=== PATIENT | male | born 1975 | race Caucasian/White ===

== ENCOUNTER 2018-06-09 12:59 | Emergency (ER) | payer OTHER ==
[~2018-06-09] VITALS: Ht 182.9 cm; Wt 70.3 kg
[2018-06-09] MEDS ORDERED: HUMALOG100 UNIT/1 SUBQ (13:19)
[2018-06-09] MEDS ORDERED: VITAMIN D3400 UNIT PO (13:19)
[2018-06-09] MEDS ORDERED: PRAVACHOL20 MG PO (13:19)
[2018-06-09 14:17] LABS: HEMATOCRIT 43.7 % (42.0-52.0); HEMOGLOBIN 14.8 gm/dL (14.0-18.0); MCH 30.6 pg (26.0-34.0); MCHC 33.8 g/dL (28.0-37.0); MCV 90.6 fL (80.0-100.0); MPV 8.8 fl. (7.2-11.1); RBC 4.82 mil/uL (4.50-6.00); RDW-CV 12.6 % (10.5-14.5); WBC 6.8 thou/uL (4.0-11.0)
[2018-06-09 14:25] LABS: INR 1.1; PROTIME 10.4 Seconds (9.20-11.50)
[2018-06-09 14:32] LABS: URINE BILIRUBIN NEGATIVE (Negative); URINE BLOOD NEGATIVE (Negative); URINE CLARITY CLEAR; URINE COLOR YELLOW; URINE GLUCOSE-RANDOM 3+ (Negative); URINE KETONES NEGATIVE (Negative); URINE LEUKOCYTES NEGATIVE (Negative); URINE NITRITE NEGATIVE (Negative); URINE PROTEIN NEGATIVE (Negative); URINE SPECIFIC GRAVITY 1.015 (1.005-1.030); URINE UROBILINOGEN 0.2 E.U./dl (0.2-1.0)
[2018-06-09 14:34] LABS: ALBUMIN 3.9 g/dL (3.4-5.0); CALCIUM 9.4 mg/dL (8.5-10.1); POTASSIUM 4.5 mmol/L (3.5-5.1); TOTAL BILIRUBIN 0.7 mg/dL (<0.1-1.0); TOTAL PROTEIN 7.2 g/dL (6.4-8.2)
[2018-06-09] MEDS ORDERED: PREDNISONE 10 M10 MG PO (15:18)
[2018-06-09] MEDS ORDERED: NEURONTIN 300300 M1 PO (15:18)
[2018-06-09 15:59] VITALS: BP 118/71
--- NOTE | 2018-06-10 12:40 | EKG ---
[place] [address] ELECTROCARDIOGRAM REPORT Name: KWADWO KEENE Room: 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 : 1975 Requested By: Polina Ellison Order Number: [id number] MD: Diaz Fernandez Measurements Intervals [place] Rate: 68 P: 51 UT: 148 QRS: 27 QRSD: 93 T: 64 QT: 377 QTc: 401 Interpretive Statements Sinus rhythm Abnormal R-wave progression, early transition Anteroseptal infarct, age indeterminate Baseline wander in lead(s) V1 No previous ECG available for comparison Electronically Signed On 06-10-2018 12:40:18 CDT by Diaz Fernandez [email or web address] <ELECTRONICALLY SIGNED> By: Diaz Fernandez MD, [facility] 06/10/18 1240 1415 1415 Diaz Fernandez MD, [facility] /EPI
== END 2018-06-09 16:00 | disposition home or self-care (01) ==
LOC: M.ERS 12:59
PROVIDERS: Physician Assistant
DX: E11.40 Type 2 diabetes mellitus with diabetic neuropathy, unspecified (principal); M54.31 Sciatica, right side; F17.200 Nicotine dependence, unspecified, uncomplicated; Z79.4 Long term (current) use of insulin